=== PATIENT | male | born 1970 | race Caucasian/White ===

== ENCOUNTER 2021-02-08 10:45 | Emergency (ER) | payer OTHER, SELFPAY ==
--- NOTE | ~2021-02-08 | CT_ITS ---
EXAMINATION: CT abdomen pelvis w con DATE: 02/08/2021 12:50 INDICATION: Epigastric pain. TECHNIQUE: Computed tomography (CT) of the abdomen and pelvis was performed without intravenous contr ast. The dose-length product was 1564.10 mGy-cm. Automated exposure control and iterative reconstruct ion technique were employed. COMPARISON: None. FINDINGS: Heart size is normal. Small pleural effusions. Bibasilar dependent atelectasis. There is a mesenteric nodule measuring 1.6 x 0.7 cm, image 90. There is abnormal mesenteric fluid and stranding extending caudally from the level of the duodenum into the retroperitoneum. There is fluid extending into the paracolic gutters. Colonic diverticulosis without definitive evidence for acute diverticulit is. No evidence for bowel obstruction. There is mild thickening of the duodenum Fatty infiltration of the liver. The spleen, pancreas, adrenal glands and kidneys are unremarkable. N ormal appendix. Mild lumbar spondylosis. No hydronephrosis. Bladder is decompressed. IMPRESSION: 1. Mild fluid and stranding in the retroperitoneum and mesentery, possibly secondary to duodenitis. N o evidence for perforation or abscess. 2: Small mesenteric soft tissue nodule measuring up to 1.6 cm, possibly a lymph node. There are none nlarged retrocrural lymph nodes, nonspecific. 3: Small pleural effusions. 4: Colonic diverticulosis without evidence for diverticulitis. Reviewed, dictated and finalized at location A. IMPRESSION: 1. Mild fluid and stranding in the retroperitoneum and mesentery, possibly seco ndary to duodenitis. No evidence for perforation or abscess. 2: Small mesenteric soft tissue nodule measuring up to 1.6 cm, possibly a lymp h node. There are nonenlarged retrocrural lymph nodes, nonspecific. 3: Small pleural effusions. 4: Colonic diverticulosis without evidence for diverticulitis.
[2021-02-08 10:48] VITALS: BP 141/97; PULSE 94; RESP 18; TEMP 36.4; O2SAT 99
[2021-02-08 11:04] LABS: Basophils Absolute Auto 0.1 K/mm3 (0.0-0.1); Basophils Percent Auto 0.6 % (0.2-1.2); Eosinophils Absolute Auto 0.2 K/mm3 (0-0.3); Eosinophils Percent Auto 1.4 % (0-4.4); Hematocrit 52.6 % (42.0-52.0); Hemoglobin 17.1 g/dL (14.0-18.0); Immature Granulocyte Absolute 0.09 K/mm3 (0.00-0.031); Immature Granulocyte Percent A 0.8 % (0-0.5); Lymphocytes Percent Auto 11.3 % (18.3-44.2); Mean Corpuscular HGB Conc 32.5 g/dl (32-36); Mean Corpuscular Hemoglobin 28.5 pg (26-34); Mean Corpuscular Volume 87.5 fl (80-100); Mean Platelet Volume 9.6 fl (7.4-10.4); Monocytes Absolute Auto 0.9 K/mm3 (0.1-0.6); Monocytes Percent Auto 7.8 % (2.6-8.5); Neutrophils Percent Auto 78.1 % (45.5-73.1); Platelet Count Result 319 k/mm3 (150-375); Red Blood Count 6.01 M/mm3 (4.6-6.20); Red Cell Distribution Width 14.6 % (11.5-14.5); White Blood Count 11.5 K/mm3 (4.5-10.0)
[2021-02-08 11:14] LABS: Alanine Aminotransferase 39 U/L (4-50); Albumin Level 4.5 g/dL (3.5-5.1); Alkaline Phosphatase 93 U/L (38-126); Anion Gap 10 mmol/L (8-16); Aspartate Amino Transferase 24 U/L (17-59); Bilirubin,Total 0.5 mg/dL (0.2-1.3); Blood Urea Nitrogen 21 mg/dL (9-20); Calcium 9.8 mg/dL (8.4-10.2); Carbon Dioxide 27 mmol/L (22-30); Chloride 103 mmol/L (98-107); Estimated CRCL calculation 70 ml/min; Estimated Glomerular Filt Rate > 60; Glucose 119 mg/dL (75-110); Lipase 29 U/L (23-300); Potassium 4.5 mmol/L (3.4-5.0); Sodium 140 mmol/L (137-145)
[2021-02-08 11:22] LABS: Add Urine Microscopic? YES; Appearance Urine Clear (Clear); Bilirubin Urine Negative (Negative); Blood Urine Negative (Negative); Color Urine Amber (Yellow); Glucose Urine UA Negative (Negative); Hyaline Casts Urine 15-19 /lpf; Ketones Urine Negative (Negative); Leukocyte Esterase Ur Trace LEU/UL (Negative); Mucus Urine Moderate /lpf; Nitrate Urine Negative (Negative); Protein Urine 1+ mg/dL (Negative); RBC Urine 0-2 /hpf (0-2); Specific Grav Ur 1.026 (1.001-1.035); Squamous Epithelial Cell Urine Rare /hpf (Few); Urobilinogen Urine Negative mg/dL (<2.0)
--- NOTE | 2021-02-08 11:54 | ED.ABDPAIN ---
HPI - Abdominal Pain General Chief Complaint: Abdominal Pain Stated Complaint: sent from urgent care/abdominal pain Time Seen by Provider: 02/08/21 11:47 Source: patient and RN notes reviewed Mode of arrival: ambulatory Limitations: no limitations History of Present Illness HPI narrative: This is a 50 year old male with history of diverticulitis who presents for evaluation of upper abdominal pain. He states his pain has been constant and nonradiating. His pain is worse with sitting still. He also has nausea and dry heaves. He told triage nurse that his pain is different from previous episodes of diverticulitis because that pain is usually located left lower abdominal pain. He states he had a bowel movement today but it was less than normal. He took Motrin yesterday for his pain with out relief. He denies fever, chills, chest pain or sob. Pain is 8/10. Related Data Allergies Allergy/AdvReac Type Severity Reaction Status Date / Time No Known Allergies Allergy Verified 02/08/21 10:56 Review of Systems Review of Systems: All systems reviewed & are unremarkable except as noted in HPI and below PMFSH Past Medical History Medical History (Updated 02/08/21 @ 13:25 by Shayla Landeros MD) Diverticulitis Testicular cancer Surgical History Surgical History (Updated 02/08/21 @ 12:02 by Shayla Landeros MD) S/P orchiectomy Social History Social History (Updated 02/08/21 @ 12:03 by Shayla Landeros MD) Smoking status: Never smoker Alcohol intake: current Alcohol use details: social Substance use: never Exam Const: General: no acute distress and alert Orientation/consciousness: patient oriented x3 Eyes: EOM: EOMs intact bilaterally Resp: Effort & Inspection: normal respiratory effort and no retractions Auscultation: clear to auscultation bilaterally Cardio: Rate: regular rate Rhythm: regular rhythm Heart sounds: no murmurs GI: GI Palp: Yes Soft to palpation, Yes Tenderness to palpation present (GI) (epigastric), No Guarding due to palpation present (GI) and No Rigid due to palpation Auscultation: normal bowel sounds Skin: General skin exam: normal color Rashes: no rashes Neuro: General: patient oriented x3, moves all extremities and CN's II-XI intact bilaterally Extrem: General: normal to inspection Course Reevaluation(s) Reevaluation #1: I reviewed with patient his results of his CT scan showing inflammation at duodenum and lymph node. It was recommended that he follow up with GI/primary care provider to make sure this is fully evaluated and treated . He will be started on PPI Date: 02/08/21 Time: 13:21 Vital Signs Vital signs: Vital Signs Temperature 97.6 F 02/08/21 10:48 Pulse Rate 94 02/08/21 10:48 Respiratory Rate 18 02/08/21 10:48 Blood Pressure 141/97 H 02/08/21 10:48 Pulse Oximetry 99 02/08/21 10:48 Temperature 97.6 F 02/08/21 10:48 Pulse Rate 81 02/08/21 13:50 Respiratory Rate 18 02/08/21 13:50 Blood Pressure 116/80 02/08/21 13:50 Pulse Oximetry 96 02/08/21 13:50 MDM - Abdominal Pain Lab Data Attestation: I reviewed the patient's lab results. Result diagrams: 02/08/21 10:57 02/08/21 10:57 Labs: Lab Results 02/08/21 02/08/21 02/08/21 Range/Units 10:57 10:57 11:11 WBC 11.5 H (4.5-10.0) K/mm3 RBC 6.01 (4.6-6.20) M/mm3 Hgb 17.1 (14.0-18.0) g/dL Hct 52.6 H (42.0-52.0) % MCV 87.5 (80-100) fl MCH 28.5 (26-34) pg MCHC 32.5 (32-36) g/dl RDW 14.6 H (11.5-14.5) % Plt Count 319 (150-375) k/mm3 MPV 9.6 (7.4-10.4) fl Immature Gran % (Auto) 0.8 H (0-0.5) % Neut % (Auto) 78.1 H (45.5-73.1) % Lymph % (Auto) 11.3 L (18.3-44.2) % Wilkin % (Auto) 7.8 (2.6-8.5) % Eos % (Auto) 1.4 (0-4.4) % Baso % (Auto) 0.6 (0.2-1.2) % Lymph # (Auto) 1.30 (0.9-3.2) K/mm3 Wilkin # (Auto) 0.9 H (0.1-0.6) K/mm3 Eos # (Auto) 0.2 (0-0.3
[2021-02-08 12:18] VITALS: BP 140/94; PULSE 82; RESP 12; O2SAT 95
[2021-02-08] MEDS: LACTATED RINGERS 1,000 ML 999 ML IV CONT (12:26)
[2021-02-08] MEDS: ONDANSETRON INJ 4 MG/2 ML VIAL IV PUSH (12:27)
[2021-02-08] MEDS: PANTOPRAZOLE SODIUM IV 40 MG VIAL IV PUSH (12:27)
[2021-02-08 13:00] VITALS: BP 136/74; PULSE 87; RESP 16; O2SAT 94
[2021-02-08 13:11] VITALS: BP 136/74; PULSE 85; RESP 18; O2SAT 93
[2021-02-08 13:32] VITALS: BP 116/80; PULSE 81; RESP 18; O2SAT 95
[2021-02-08 13:50] VITALS: BP 116/80; PULSE 81; RESP 18; O2SAT 96
== END 2021-02-08 13:45 | disposition home or self-care (01) ==
PROVIDERS: Emergency Provider General Practice; PCP Family Medicine
DX: K29.80 Duodenitis without bleeding (principal); Z85.47 Personal history of malignant neoplasm of testis; K57.90 Diverticulosis of intestine, part unspecified, without perforation or abscess without bleeding; R93.5 Abnormal findings on diagnostic imaging of other abdominal regions, including retroperitoneum
CPT/HCPCS: 36415; 74177; 80053; 81001; 83690; 85025; 96361; 96365; 96375; 99284; C9113; J0131; J2405; J7120; Q9967

== ENCOUNTER → 2021-03-31 05:27 | Outpatient (CLI) | payer OTHER, SELFPAY ==
[2021-03-31 21:10] LABS: SARS-CoV-2 RNA PCR Negative
== END ==
PROVIDERS: PCP Family Medicine; Visit Provider Internal Medicine Gastroenterology
DX: Z01.812 Encounter for preprocedural laboratory examination (principal); Z20.822 Contact with and (suspected) exposure to COVID-19
CPT/HCPCS: C9803; U0003; U0005

== ENCOUNTER 2021-04-03 05:27 | Day surgery (SDC) | payer OTHER, SELFPAY ==
[2021-03-25 13:25] VITALS: BMI 39.5
--- NOTE | 2021-04-03 09:21 | P.PNAN_ITS ---
Anes - Initial Pre Proc Eval Procedure: Operation Date: 04/03/21 12:00 Proposed Procedures p Esophagogastroduodenoscopy & Screening Colonoscopy - Fili Her MD Date/Time: 04/03/21 09:21 Surgeon: Fili Her MD Pre Op Diagnosis: duodenitis, neoplasm screening Patient Data Age: 50 Gender: M Height: 1.78 m Weight: 125 kg Allergies Allergy/AdvReac Type Severity Reaction Status Date / Time No Known Allergies Allergy Verified 02/12/20 16:05 Home Medications Medication Instructions Recorded Confirmed Type pantoprazole 40 mg PO DAILY 03/25/21 03/25/21 History Patient hx anesthesia problems: none Family hx anesthesia problems: none [facility] Past Medical History Medical History (Updated 02/12/20 @ 16:47 by Belinda Cardenas MD) Allergies Diverticulitis (~02/2002) Environmental allergies (~06/27/17) Forearm fracture YAMILA (obstructive sleep apnea) (~06/28/18) Testicular cancer UGI bleed (~11/1998) Surgical History Surgical History History of orchiectomy History of vasectomy (~07/2012) Social History Social History Smoking status: Never smoker Second hand tobacco smoke exposure: No Alcohol intake: current Drinks per week: 2 Alcohol use details: consumes 2 beers or 2 glasses of wine weekly Substance use: never Substance use type: does not use Living arrangements: with family Gender identity (if verbalized by the patient): Male Spiritual care concerns: No Anes - Eval Final PreProcedure Day of Procedure 04/03/21 09:21 Patient weight: obese Heart: regular rate and rhythm Lungs: clear to auscultation and normal air movement Airway: Mallampati scale class II Neurological: alert and oriented Last oral intake: >/= 8 hours ASA classification: III Emergent: no Anesthetic plan: proceed Anesthesia type and monitoring: general GIVS Informed Consent: The patient's anesthetic plan and its attendant risks and benefits were discussed with the patient/family/POA. Questions were solicited and answers provided to the satisfaction of the patient/family/POA.
[2021-04-03 11:38] VITALS: BP 137/74; PULSE 66; RESP 16; TEMP 35.9; O2SAT 97; BMI 37.3
[2021-04-03] MEDS: LACTATED RINGERS 1,000 ML 150 ML IV CONT (11:53)
--- NOTE | 2021-04-03 12:14 | P.HP_ITS ---
History of Present Illness History of Present Illness Consent: Risks, benefits, and alternatives have been discussed and questions answered. Patient agrees to proceed with procedure. Chief complaint: duodenitis, neoplasm screening Narrative: Juwan Wade Jr. is a 50 year old male who has recently had upper abdominal discomfort. He also has had chest pain for which she had a visit to [place] emergency room recently. Cardiac tests were negative. He was found to have duodenitis on CT scan. He has lost about 20 lb since this all began Review of Systems Review of Systems: All systems reviewed & are unremarkable except as noted in HPI and below PMFSH Past Medical History Medical History (Updated 04/03/21 @ 12:15 by Fili Her MD) Allergies Diverticulitis (~02/2002) Environmental allergies (~06/27/17) Forearm fracture YAMILA (obstructive sleep apnea) (~06/28/18) Testicular cancer UGI bleed (~11/1998) Surgical History Surgical History History of orchiectomy History of vasectomy (~07/2012) Social History Social History Smoking status: Never smoker Second hand tobacco smoke exposure: No Alcohol intake: current Drinks per week: 2 Alcohol use details: consumes 2 beers or 2 glasses of wine weekly Substance use: never Substance use type: does not use Living arrangements: with family Gender identity (if verbalized by the patient): Male Spiritual care concerns: No Meds Home Medications and Allergies Home Medications Medication Instructions Recorded Confirmed Type pantoprazole 40 mg PO DAILY 03/25/21 04/03/21 History Allergies Allergy/AdvReac Type Severity Reaction Status Date / Time No Known Allergies Allergy Verified 04/03/21 11:36 Vital Signs Vital Signs - 24 hr 04/03/21 11:38 Temperature 35.9 C L Pulse Rate 66 Respiratory Rate 16 Blood Pressure 137/74 Pulse Oximetry 97 Exam Const: General: alert Orientation/consciousness: patient oriented x3 Resp: Auscultation: clear to auscultation bilaterally Cardio: Rhythm: regular rhythm GI: GI Palp: Yes Soft to palpation and No Tenderness to palpation present (GI) Neuro: General: patient oriented x3 Assessment and Plan Assessment and plan (1) Abnormal CT scan, gastrointestinal tract: Code(s): R93.3 - Abnormal findings on diagnostic imaging of other parts of digestive tract Status: Acute Assessment and Plan: EGD with possible biopsy or dilatation or cautery. (2) Colon cancer screening: Code(s): Z12.11 - Encounter for screening for malignant neoplasm of colon Status: Acute Assessment and Plan: Colonoscopy with possible biopsy or polypectomy or cautery or injection of substances.
[2021-04-03] MEDS: BENZOCAINE (*SP) 60 ML SPRAY CAN (HURRICAINE) 1 SPRAY MUCOUS MEM (12:24)
[2021-04-03 12:49] VITALS: BP 84/51; PULSE 64; RESP 18; O2SAT 97
[2021-04-03 12:59] VITALS: BP 87/59; PULSE 57; RESP 18; O2SAT 98
[2021-04-03 13:09] VITALS: BP 102/62; PULSE 52; RESP 13; O2SAT 98
== END 2021-04-03 13:16 | disposition home or self-care (01) ==
PROVIDERS: PCP Family Medicine; Visit Provider Internal Medicine Gastroenterology
PROC: 0DJ08ZZ Inspection of Upper Intestinal Tract, Via Natural or Artificial Opening Endoscopic (ICD-10-PCS; CPT 43235; principal; 2021-04-03 12:00)
DX: Z12.11 Encounter for screening for malignant neoplasm of colon (principal); K29.80 Duodenitis without bleeding; K21.9 Gastro-esophageal reflux disease without esophagitis; K57.30 Diverticulosis of large intestine without perforation or abscess without bleeding; G47.33 Obstructive sleep apnea (adult) (pediatric); Z85.47 Personal history of malignant neoplasm of testis
CPT/HCPCS: 45378; 43239; 87081; 88305; C9803; J2704; J7120; U0003; U0005

== ENCOUNTER 2022-11-08 09:41 | Outpatient (CLI) | payer OTHER, SELFPAY ==
[2022-11-08 19:13] LABS: Alanine Aminotransferase 51 U/L (6-50); Albumin Level 4.5 g/dL (3.5-5.1); Alkaline Phosphatase 96 U/L (38-126); Anion Gap 10 mmol/L (8-16); Aspartate Amino Transferase 30 U/L (17-59); Bilirubin,Total 0.5 mg/dL (0.2-1.3); Blood Urea Nitrogen 17 mg/dL (9-20); Calcium 9.2 mg/dL (8.4-10.2); Carbon Dioxide 26 mmol/L (22-30); Chloride 104 mmol/L (98-107); Cholesterol 205 mg/dL (0-200); Estimated Glomerular Filt Rate > 60; Glucose 105 mg/dL (65-110); HDL Direct 30 mg/dL; Potassium 4.7 mmol/L (3.4-5.0); Sodium 140 mmol/L (137-145); Triglycerides 198 mg/dL (<150); Uric Acid 9.7 mg/dL (3.5-8.5)
[2022-11-08 19:24] LABS: LDL Cholesterol Direct 130 mg/dL
[2022-11-08 19:42] LABS: Prostate Specific Antigen 1.1 ng/mL (< OR = 4.0)
[2022-11-08 21:04] LABS: Basophils Absolute Auto 0.1 K/mm3 (0.0-0.1); Basophils Percent Auto 0.8 % (0.2-1.2); Eosinophils Absolute Auto 0.1 K/mm3 (0-0.3); Eosinophils Percent Auto 1.3 % (0-4.4); Hematocrit 47.6 % (42.0-52.0); Hemoglobin 15.8 g/dL (14.0-18.0); Immature Granulocyte Absolute 0.05 K/mm3 (0.00-0.031); Immature Granulocyte Percent A 0.7 % (0-0.5); Lymphocytes Absolute Auto 1.52 K/mm3 (0.9-3.2); Lymphocytes Percent Auto 21.3 % (18.3-44.2); Mean Corpuscular HGB Conc 33.2 g/dl (32-36); Mean Corpuscular Hemoglobin 29.7 pg (26-34); Mean Corpuscular Volume 89.5 fl (80-100); Mean Platelet Volume 10.3 fl (7.4-10.4); Monocytes Absolute Auto 0.6 K/mm3 (0.1-0.6); Neutrophils Absolute Auto 4.8 K/mm3 (1.3-6.7); Neutrophils Percent Auto 66.9 % (45.5-73.1); Platelet Count Result 308 k/mm3 (150-375); Red Blood Count 5.32 M/mm3 (4.6-6.20); Red Cell Distribution Width 14.3 % (11.5-14.5); White Blood Count 7.1 K/mm3 (4.5-10.0)
== END 2022-11-08 09:42 | disposition home or self-care (01) ==
LOC: ANHGOSHLAB 09:42
PROVIDERS: PCP Family Medicine; Visit Provider Nurse Practitioner
DX: M79.89 Other specified soft tissue disorders (principal); Z13.6 Encounter for screening for cardiovascular disorders; Z13.220 Encounter for screening for lipoid disorders; Z12.5 Encounter for screening for malignant neoplasm of prostate
CPT/HCPCS: 36415; 80053; 80061; 84153; 84550; 85025; G0103

== ENCOUNTER → 2022-11-12 10:05 | Outpatient (CLI) | payer OTHER, SELFPAY ==
--- NOTE | ~2022-11-12 | US_ITS ---
US soft tissue upper back DATE: 11/12/2022 10:19 INDICATION: Localized lump of mid upper right back TECHNIQUE: Real-time and color flow imaging targeted area of complaint of lump of the right back COMPARISON: None FINDINGS: There is an approximately 3.3 x 13.6 x 14.5 cm circumscribed soft tissue mass with minimal internal vascularity in the area of clinical complaint. IMPRESSION: Nonspecific 3.3 x 13.6 x 14.5 cm soft tissue mass of the mid upper right back Reviewed, dictated and finalized at Location [facility]. Reviewed, dictated and finalized at location B.
== END ==
PROVIDERS: PCP Family Medicine; Visit Provider Nurse Practitioner
DX: R22.2 Localized swelling, mass and lump, trunk (principal)
CPT/HCPCS: 76604

== ENCOUNTER 2023-10-21 08:24 | Outpatient (CLI) | payer OTHER, SELFPAY ==
[2023-10-21 12:44] LABS: Basophils Absolute Auto 0.1 K/mm3 (0.0-0.1); Basophils Percent Auto 0.8 % (0.2-1.2); Eosinophils Absolute Auto 0.3 K/mm3 (0-0.3); Eosinophils Percent Auto 3.3 % (0-4.4); Hematocrit 49.1 % (42.0-52.0); Hemoglobin 15.7 g/dL (14.0-18.0); Immature Granulocyte Percent A 1.1 % (0-0.5); Lymphocytes Absolute Auto 1.34 K/mm3 (0.9-3.2); Lymphocytes Percent Auto 14.6 % (18.3-44.2); Mean Corpuscular Hemoglobin 28.6 pg (26-34); Mean Corpuscular Volume 89.6 fl (80-100); Mean Platelet Volume 10.3 fl (7.4-10.4); Monocytes Absolute Auto 0.8 K/mm3 (0.1-0.6); Monocytes Percent Auto 8.9 % (2.6-8.5); Neutrophils Absolute Auto 6.5 K/mm3 (1.3-6.7); Neutrophils Percent Auto 71.3 % (45.5-73.1); Platelet Count Result 286 k/mm3 (150-375); Red Blood Count 5.48 M/mm3 (4.6-6.20); Red Cell Distribution Width 14.3 % (11.5-14.5); White Blood Count 9.2 K/mm3 (4.5-10.0)
[2023-10-21 13:02] LABS: Alanine Aminotransferase 34 U/L (6-50); Alkaline Phosphatase 85 U/L (38-126); Anion Gap 4 mmol/L (8-16); Aspartate Amino Transferase 60 U/L (17-59); Bilirubin,Total 0.6 mg/dL (0.2-1.3); Blood Urea Nitrogen 18 mg/dL (9-20); Calcium 8.8 mg/dL (8.4-10.2); Carbon Dioxide 28 mmol/L (22-30); Chloride 107 mmol/L (98-107); Cholesterol 172 mg/dL (0-200); Estimated Glomerular Filt Rate > 60; Glucose 108 mg/dL (65-110); HDL Direct 33 mg/dL; Potassium 4.4 mmol/L (3.4-5.0); Sodium 139 mmol/L (137-145); Triglycerides 126 mg/dL (<150)
[2023-10-21 13:13] LABS: LDL Cholesterol Direct 118 mg/dL
[2023-10-21 14:01] LABS: Hemoglobin A1C 5.9 % (<5.7)
== END 2023-10-21 08:25 | disposition home or self-care (01) ==
LOC: ANHGOSHLAB 08:25
PROVIDERS: PCP Family Medicine; Visit Provider Nurse Practitioner Family
DX: Z00.00 Encounter for general adult medical examination without abnormal findings (principal); I10 Essential (primary) hypertension; Z12.5 Encounter for screening for malignant neoplasm of prostate; R73.03 Prediabetes; E03.9 Hypothyroidism, unspecified; E78.5 Hyperlipidemia, unspecified
CPT/HCPCS: 36415; 80053; 80061; 83036; 84153; 84443; 85025; G0103

== ENCOUNTER 2023-10-21 08:52 | Outpatient (CLI) | payer OTHER, SELFPAY ==
--- NOTE | ~2023-10-21 | XR_ITS ---
EXAMINATION:XR_[id number]_CR DATE: 10/21/2023 09:04 INDICATION: Neck pain TECHNIQUE: AP, lateral, lateral swimmers and odontoid views of the cervical spine are provided. COMPARISON: None FINDINGS: There is straightening of the cervical spine which can be positional or due to muscular spa sm. Alignment is normal. There are 5 degrees of cervical levocurvature. The odontoid process is intac t. No fracture is identified. Vertebral body heights and disk spaces are normal. Prevertebral soft ti ssues are normal. IMPRESSION: 1. Mild levocurvature of the cervical spine without acute findings identified. Reviewed, dictated and finalized at location B. SERVICE CLERK
== END 2023-10-21 08:53 ==
LOC: MICIMG 08:54
PROVIDERS: PCP Nurse Practitioner Family; Visit Provider Nurse Practitioner Family
DX: M62.838 Other muscle spasm (principal); S19.9XXA Unspecified injury of neck, initial encounter; X58.XXXA Exposure to other specified factors, initial encounter
CPT/HCPCS: 72040

== ENCOUNTER 2023-12-02 01:06 | Day surgery (SDC) | payer OTHER, SELFPAY ==
[2023-11-23 10:25] VITALS: BMI 40.1
--- NOTE | 2023-11-23 10:29 | PC.NURSE ---
Report to the Outpatient Waiting Room, entrance under the green pavilion located off [facility], at time 1200 on date 12/02/23. Planned Procedure Time: 1400. Time changes happen often and if your time is changed the preop area will call you the afternoon before. - You and your visitor will be asked to self-screen and do not enter if you have any COVID symptoms. - A mask is optional within the hospital at this time. Patients may have clear liquids (water, carbonated beverages, clear teas, apple juice) until 3 hours prior to surgery with a maximum of 20 ounces. - No food from midnight until time of surgery Take the following medications with a SIP of water the morning of surgery: N/A DO NOT STOP ANY OF YOUR OTHER PRESCRIPTION MEDICATIONS PRIOR TO SURGERY ?EXCEPT THE FOLLOWING Medications to discontinue per physician: N/A Date to take last dose: N/A Please no make-up, nail kazakh, hairspray, perfume, deodorant, or body powder the day of surgery. No jewelry (including any body piercings) or valuables the day of surgery, leave them at home. Please take a shower or bath the night before, or the morning of, surgery with an antibacterial soap. Wear comfortable, loose fitting clothing. - Jewelry must be removed prior to entering the operating room. Rings and piercings that are not removed may be cut off. - The hospital will not accept responsibility for valuables. - Please leave all valuables, including medications, at home the day of surgery. If you are going home after surgery, a licensed production truck driver must drive you home. - NO public transportation without another adult if you receive anesthesia. - We recommend that an adult stay with you for 24 hours following discharge. - We also recommend that you do not drive, make important decision, drink alcoholic beverages, or take any drugs that were not prescribed by your health care provider for at least 24 hours after your discharge time. Follow any additional instructions given to you from your surgeon. If you or anyone in your household have experienced Covid symptoms in the past week, please notify your surgeon or the nurse liaison at the phone number below for possible testing. Telephone instructions given to PT - DAPHNEY and asked if any additional questions and then verbalized understanding. Patient advised to call surgeon office or pre surgery nurse liaison [phone] if any additional questions.
[2023-12-02] VITALS (8 sets, daily range): BP systolic 124–159; BP diastolic 66–90; PULSE 65–75; RESP 16–20; TEMP 36.3–36.7; O2SAT 96–98
--- NOTE | 2023-12-02 12:07 | WPDANESEPPF ---
Anes - Initial Pre Proc Eval Procedure: Operation Date: 12/02/23 13:30 Proposed Procedures p Excision of Upper Back Mass - Nathanael Bautista DO Date/Time: 12/02/23 12:07 Surgeon: Nathanael Bautista DO Pre Op Diagnosis: 14 cm upper back mass Patient Data Age: 53 Gender: M Height: 1.78 m Weight: 127 kg Allergies Allergy/AdvReac Type Severity Reaction Status Date / Time No Known Allergies Allergy Verified 12/02/23 11:57 Home Medications Medication Instructions Recorded Confirmed Type No Home Medications 11/23/23 11/23/23 History Patient hx anesthesia problems: none Family hx anesthesia problems: none Results Review: All pre-operative results and documents have been reviewed as part of the pre-operative evaluation. [facility]LY [facility] Past Medical History Medical History Allergies Diverticulitis Environmental allergies (~06/27/17) Forearm fracture Muscle spasm YAMILA (obstructive sleep apnea) (~06/28/18) Testicular cancer UGI bleed (~11/1998) Surgical History Surgical History History of orchiectomy History of vasectomy (~07/2012) Family History Family History Father Family history of gout Family history of coronary artery disease Mother Family history of ulcerative colitis Grandparent Family history of chronic obstructive pulmonary disease Family history of lung cancer Family history of coronary artery disease Family history of malignant neoplasm of urinary bladder Other Diabetes mellitus Hypertension Social History Social History Smoking status: Never smoker Second hand tobacco smoke exposure: No Alcohol intake: current Drinks per week: 3 Alcohol use details: social Substance use: never Substance use type: does not use Lack of Transportation: No Lack of Food: Never True Current Housing: I Have Housing Concerned About Future Housing: No Difficulty Paying Gas/Electric Bills: No Difficulty Paying for Meds: No Currently Unemployed: No Education: Bachelor's Degree Difficulty w/ Childcare or Family Care: No Living arrangements: with family Gender identity (if verbalized by the patient): Male Spiritual care concerns: No Anes - Eval Final PreProcedure Day of Procedure 12/02/23 12:07 Patient weight: morbidly obese Heart: regular rate and rhythm Lungs: clear to auscultation Airway: Mallampati scale class II Neurological: alert and oriented Last oral intake: >/= 8 hours ASA classification: III Emergent: no Anesthetic plan: proceed Anesthesia type and monitoring: general LMA and standard monitoring Results Review: All pre-operative results and documents have been reviewed as part of the pre-operative evaluation. Informed Consent: The patient's anesthetic plan and its attendant risks and benefits were discussed with the patient/family/POA. Questions were solicited and answers provided to the satisfaction of the patient/family/POA.
[2023-12-02] MEDS: LACTATED RINGERS 1,000 ML 30 ML IV CONT (12:30)
--- NOTE | 2023-12-02 12:44 | PM.IMHP ---
H&P: HPI History of Present Illness Date/Time: 12/02/23 12:44 Chief Complaint: Back mass Narrative: This is a 53-year-old man who presents for excision of a large back mass. He reports no changes since last seen in the office. Review of Systems Review of Systems: All systems reviewed & are unremarkable except as noted in HPI and below Constitutional: Constitutional: Denies chills, Denies fever(s), Denies headache(s) and Denies weight loss Eyes: Eyes: Denies change in vision ENT: Denies dizziness, Denies headache(s), Denies neck mass and Denies throat swelling Cardiovascular: Cardiovascular: Denies chest pain, Denies lightheadedness and Denies dyspnea Respiratory: Respiratory: Denies cough, Denies dyspnea and Denies wheezing Gastrointestinal: Gastrointestinal: Denies abdominal pain, Denies change in bowel habits, Denies nausea and Denies vomiting Genitourinary: Genitourinary: Denies hematuria and Denies dysuria Musculoskeletal: Musculoskeletal: Reports as per HPI Integumentary/Breasts: Skin/Breast: Reports as per HPI Neurologic: Denies dizziness and Denies headache(s) Allergic/Immunologic: Allergic/Immunologic: Denies throat swelling and Denies wheezing PMFSH Past Medical History Medical History Allergies Diverticulitis Environmental allergies (~06/27/17) Forearm fracture Muscle spasm YAMILA (obstructive sleep apnea) (~06/28/18) Testicular cancer UGI bleed (~11/1998) Surgical History Surgical History History of orchiectomy History of vasectomy (~07/2012) Family History Family History Father Family history of gout Family history of coronary artery disease Mother Family history of ulcerative colitis Grandparent Family history of chronic obstructive pulmonary disease Family history of lung cancer Family history of coronary artery disease Family history of malignant neoplasm of urinary bladder Other Diabetes mellitus Hypertension Social History Social History Smoking status: Never smoker Second hand tobacco smoke exposure: No Alcohol intake: current Drinks per week: 3 Alcohol use details: social Substance use: never Substance use type: does not use Lack of Transportation: No Lack of Food: Never True Current Housing: I Have Housing Concerned About Future Housing: No Difficulty Paying Gas/Electric Bills: No Difficulty Paying for Meds: No Currently Unemployed: No Education: Bachelor's Degree Difficulty w/ Childcare or Family Care: No Living arrangements: with family Gender identity (if verbalized by the patient): Male Spiritual care concerns: No Meds Home Medications and Allergies Home Medications Medication Instructions Recorded Confirmed Type No Home Medications 11/23/23 11/23/23 History Allergies Allergy/AdvReac Type Severity Reaction Status Date / Time No Known Allergies Allergy Verified 12/02/23 11:57 Vital Signs Vital Signs - 24 hr 12/02/23 12:30 Temperature 36.3 C L Pulse Rate 65 Respiratory Rate 16 Blood Pressure 146/83 H Pulse Oximetry 98 Oxygen Delivery Room Air Exam Const: General: no acute distress and alert Orientation/consciousness: patient oriented x3 HENMT: Head: normocephalic and atraumatic Ears: hearing grossly normal bilaterally Face/Nose/Sinus: Normal nares present Mouth: Yes Normal oral and palatal mucosa present Eyes: Periorbital: periorbital findings normal Sclera: sclerae normal EOM: EOMs intact bilaterally Neck: Neck: normal visual inspection, no lymphadenopathy and trachea midline Chest: Chest palpation & inspection: normal inspection of the chest Resp: Effort & Inspection: normal respiratory effort Auscultation: clear to auscultation bilaterally Cardio: Jugular venous distension: no JVD Rate: regular rate Rhythm: regular rhythm Heart sounds: S1 normal heart sound present and S2 normal heart sound present Peripheral pulses: Peripheral pulses 2+ throughout GI: Inspection: normal to inspection GI Palp: Yes Soft to palpation, No Tenderness to palpation present (GI), No Guarding due to palpation present (GI) and No Rebound tenderness present Percussion: Yes normal to percussion Auscultation: normal bowel sounds : General: Yes no CVA tenderness Back/Spine/Pelvis: Back: no CVA tenderness Other: 14 cm right mid back mass, soft mobile, likely a lipoma Neuro: General: patient oriented x3, no focal motor deficits and CN's II-XI intact bilaterally Cognition (Neuro): normal cognition Speech: normal speech Motor exam (neuro): 5/5 motor strength present throughout Extrem: General: capillary refill normal and no clubbing, cyanosis or edema Assessment and Plan Assessment and plan (1) Subcutaneous mass of back: Code(s): R22.2 - Localized swelling, mass and lump, trunk Status: Acute Assessment and Plan: I have recommended excision of 14 cm back mass. I have discussed the procedure, risks, benefits, and alternatives with the patient. All questions answered. No changes since last seen in office.
--- NOTE | 2023-12-02 12:46 | WPDHPUPDATE1 ---
History and Physical Update Update Date/Time: 12/02/23 12:46 History and Physical has been reviewed, including an updated exam of the patient. There are NO changes in the patient's condition. Risks, benefits, and alternatives have been discussed and questions answered. Patient agrees to proceed with procedure.
[2023-12-02] MEDS: ceFAZolin 3 GM/D5W 100 ML 100 ML IVPB (13:05)
--- NOTE | 2023-12-02 14:20 | P.OP_ITS ---
Procedure Note - Detailed Date of Procedure 12/02/23 Pre-op Diagnosis 14 cm upper back mass Post-op Diagnosis Same Procedure Performed 1. Excision of 14 cm subcutaneous upper back mass 2. Layered closure Surgeon Nathanael Bautista, DO Anesthesia MAC and Local (1% lidocaine with epinephrine) Indications This is a 53-year-old man who presented with a large subcutaneous mass in his upper back just below the base of his neck. He did been present for years and has gradually increased in size. An ultrasound was performed which showed evidence of a subcutaneous mass consistent with a lipoma. Discussions made the patient about treatment options and decision was made to proceed with excision of a 14 cm upper back mass. Findings The upper back mass was completely excised. The mass appeared to be a very large subcutaneous lipoma. I had to dissect wide around this mass to get it out completely. There was a large empty space after the mass was completely excised. I chose to place a 15 round Suresh drain to prevent large seroma from forming. The mass was sent to the lab for pathology. Description of Procedure Procedure as well as risks, benefits, and alternatives were discussed with the patient. Written consent was obtained and placed in chart prior to procedure. Patient was brought back to surgical suite. He was placed in left lateral decubitus position on the operating table. Time-out was done to confirm patient and procedure. IV sedation and LMA was administered Anesthesia Department. The patient's back area was prepped and draped in sterile fashion using chlorhexidine prep. 1% lidocaine with epinephrine was infiltrated locally over the mass. A 14 cm transverse incision was then made directly over mass using a 10 blade scalpel. Electrocautery was used for hemostasis and for dissection through the subcutaneous tissue. The mass was identified and the subcutaneous attachments were carefully dissected free around it. After carefully dissecting circumferentially around the mass using electrocautery. I then gently dissected the mass off of the back muscle and fascia there was just deep to it using electrocautery. The mass was completely excised and sent to the lab for pathol ogy. The wound bed was then inspected. Hemostasis was achieved with electrocautery. I then irrigated the area with sterile saline. Hemostasis appeared adequate. Because of the wide space that the mass was taking up, I chose to place a 15 round Suresh drain through an incision just inferior to the skin incision. The drain was placed within the subcutaneous space and then secured to skin using a 3-0 nylon drain stitch. The João's fascia and deep dermis was then reapproximated using 2-0 Vicryl simple interrupted sutures. The skin was then approximated using 3-0 nylon vertical mattress interrupted sutures. Bacitracin was then applied followed by fluff gauze and Medipore tape. Estimated Blood Loss 20 Drains Yes (15 round Suresh) Pathology Yes (Subcutaneous back mass) Complications No immediate complications Condition Stable Disposition Same day [facility] Billing Surgery - Charge Forward: Surgery Billing
[2023-12-02] MEDS: oxyCODONE HCL (*CRX) 5 MG TAB IR PO (15:27)
== END 2023-12-02 15:58 | disposition home or self-care (01) ==
PROVIDERS: PCP Family Medicine; Visit Provider Surgery
PROC: (CPT 21931; principal; 2023-12-02 13:30)
DX: D17.1 Benign lipomatous neoplasm of skin and subcutaneous tissue of trunk (principal); E66.01 Morbid (severe) obesity due to excess calories; Z68.39 Body mass index [BMI] 39.0-39.9, adult
CPT/HCPCS: 21931; 88304; A9270; J0690; J1100; J2250; J2405; J2704; J3010; J7030; J7120

== ENCOUNTER 2024-11-09 09:56 | Outpatient (CLI) | payer OTHER, SELFPAY ==
--- OUTSIDE RECORDS SUMMARY | 2024-11-09 10:43 | XMS_ITS | Clinical Summary ---
Author Organization [facility] Address [address] [place] [address] Care Team Providers Care Welder Assembler Name Role Phone Margie Cardenas MD Primary Care Provider Allergies No known active allergies Medications No known medications Active Problems No known active problems Social History Tobacco Use Types Packs/Day Years Used Date Smoking Tobacco: Never Tobacco Cessation:Counseling Given: Not Answered Sex and Gender Information Value Date Recorded Sex Assigned at Not on file Legal Sex Male 2:26 PM VOCATIONAL REHABILITATION SUPERVISOR Gender Identity Not on file Sexual Orientation Not on file Obstetrics History Last Filed Vital Signs Vital Sign Reading Time Taken Comments Blood Pressure 136/70 10/20/2023 10:11 AM VOCATIONAL REHABILITATION SUPERVISOR Pulse 73 10/20/2023 10:11 AM VOCATIONAL REHABILITATION SUPERVISOR Temperature 36.6 C (97.9 F) 10/20/2023 10:11 AM VOCATIONAL REHABILITATION SUPERVISOR Respiratory Rate 18 10/20/2023 10:11 AM VOCATIONAL REHABILITATION SUPERVISOR Oxygen Saturation 95% 10/20/2023 10:11 AM VOCATIONAL REHABILITATION SUPERVISOR Inhaled Oxygen Concentration - - Weight 124.7 kg (275 lb) 10/20/2023 10:11 AM VOCATIONAL REHABILITATION SUPERVISOR Height 180.3 cm (5' 11 ) 10/20/2023 10:11 AM VOCATIONAL REHABILITATION SUPERVISOR Body Mass Index 38.35 10/20/2023 10:11 AM VOCATIONAL REHABILITATION SUPERVISOR Plan of Treatment Health Maintenance Due Date Last Done Comments Colon Cancer Screening-Colonoscopy 1970 Depression Screening 1970 Hepatitis C Screening 1970 Prostate Cancer Screening-PSA 1970 DTaP/Tdap/Td Vaccine (1 - Tdap) 1981 Hepatitis B Screening 1988 Regular Well Visit/Exam 18-64 1988 Zoster Vaccine (1 of 2) 2020 Influenza Vaccine (#1) 2024 Pneumococcal vaccine <65 Aged Out No longer eligible based on patient's age to complete this topic Insurance [employer] OPEN ACCESS [employer] OPEN ACCESS [employer] OPEN ACCESS Care Teams Welder Assembler Relationship Specialty Start Date End Date Margie Cardenas MD PCP - General 03/05/21
--- OUTSIDE RECORDS SUMMARY | 2024-11-09 10:43 | XMS_ITS | Encounter Summary ---
Author Organization [facility] Address [address] [facility] [place] [address] Care Team Providers Care Table Hand Name Role Phone Unavailable Primary Care Provider Unavailabl e Encounter Details Date Type Department Care Team (Late st Contact Info) Description 05/03/[address] [facility] Care DermPath Lab [address] [facility] [place] [address] Faye Edwards MD [address] [facility] [address] DEPT [place] [address] Social History Tobacco Use Types Packs/Day Years Used Date Smoking Tobacco: Never Assessed Sex and Gender Information Value Date Recorded Sex Assigned at Not on file Gender Identity Not on file Sexual Orientation Not on file documented as of this encounter Plan of Treatment Not on file documented as of this encounter Procedures Procedure Name Priority Date/Time Associated Diagnosis Comments DERMATOPATH TECHNICAL REPORT Routine 05/02/2018 12:00 AM CDT documented in this encounter Results * DERMATOPATH TECHNICAL REPORT (05/02/2018 12:00 AM CDT) Case Report Dermatopathology Report Case: [id number] Authorizing Provider: Faye Edwards MD Collected: 05/02/2018 12:00 AM Pathologist: Danielle Leiva MD Received: 05/03/2018 05:50 AM Specimens: A) - Skin, right lower leg B) - Skin, left lower leg 8 12:45 PM CDT DERMATOPATHOLOGY LABORATORY Clinical History A: Vasculitis vs other. B: Vasculitis vs other. Irritated. 8 12:45 PM CDT DERMATOPATHOLOGY LABORATORY Gross Description Specimen A: Received is one formalin filled container labeled with the patient's name and designated right lower leg. The specimen consists of a punch measuring [id number]. Jar 0. Specimen B: Received is one formalin filled container labeled with the patient's name and designated left lower leg. The specimen consists of a punch measuring [id number]. Jar 0. [facility] Dermatopathology Laboratory performed the technical component only. 12:45 PM CDT DERMATOPATHOLOGY LABORATORY Embedded Images 12:45 PM CDT DERMATOPATHOLOGY LABORATORY DISCLAIMER An external and internal positive and negative controls are appropriate for the histochemical, immunohistochemical and immunofluorescence stain(s) in this case (if any), except where stated explicitly. The performance characteristics of the stain(s) cited in this report were developed and its performance characteristic determined by the Dermatopathology Laboratory at [facility]. These tests need not be, and therefore are not, approved by the [place] Food and Drug Administration. The tests are used for clinical purposes. 12:45 PM T DERMATOPATHOLOGY LABORATORY Pathology/Cytology TISSUE SPECIMEN FROM SKIN / Unknown 05/02/2018 05/03/2018 5:50 AM CDT Miscellaneous samples (specimen) TISSUE SPECIMEN FROM SKIN / Unknown 05/02/2018 05/03/2018 5:50 AM CDT Faye Edwards MD LAB - PATHOLOGY/CYT OLOGY ORDERABLES DERMATOPATHOLOGY LABORATORY [facility] - Department of Dermatology [address] [place] [address] 5th Floor Lab B [address] [phone] documented in this encounter Visit Diagnoses Not on filedocumented in this encounter
--- OUTSIDE RECORDS SUMMARY | 2024-11-09 10:43 | XMS_ITS | Clinical Summary ---
Author Organization [facility] Address [address] [place] [address] Care Team Providers Care Site Operations Manager Name Role Phone Unavailable Primary Care Provider Unavailabl e Source Comments [facility],non-owned Affiliates and Associated Physician Practices is amultiple site organization consisting of ambulatory clinics and hospital sitesin [place], [place], [place] and [place]. This disclosure is being madepursuant to the Care Everywhere program and may not contain all informatio navailable regarding this patient. Last updated 18.[facility] [employer] Social History Tobacco Use Types Packs/Day Years Used Date Smoking Tobacco: Never Assessed Sex and Gender Information Value Date Recorded Sex Assigned at Not on file Gender Identity Not on file Sexual Orientation Not on file Plan of Treatment Health Maintenance Due Date Last Done Comments COLOGUARD (AGES 45-75) - COL ON CA SCREENING 1970 COLON MONITORING 1970 COLONOSCOPY - COLON CA SCREENING 1970 CT COLONOGRAPHY - COLON CA SCREENING 1970 Colorectal Cancer Screening 1970 FIT - COLON CA SCREENING 1970 FLEX SIG - COLON CA SCREENING 1970 LIPID TESTING 1970 HIV SCREENING 1985 HEPATITIS C SCREENING 05/03/1988 DTAP/TDAP/TD VACCINES (1 - Tdap) 1989 HEPATITIS B VACCINE (1 of 3 - 19+ 3-dose series) 1989 PNEUMOCOCCAL VACCINE 50+ (1 of 1 - PCV) 2020 ZOSTER VACCINE (1 of 2) 2020 COVID-19 VACCINE ( - 2023-2 5 season) 2024 INFLUENZA VACCINE (#1) 2024 DEPRESSION SCREENING 08/15/2024 HIB VACCINE Aged Out No longer eligi ble based on patient's age to complete this topic HPV VACCINE Aged Out No longer eligi ble based on patient's age to complete this topic MENINGOCOCCAL (Group B) VACC INE SHARED DECISION-MAKING Aged Out No longer eligibl e based on patient's age to complete this topic MENINGOCOCCAL GROUPS A/C/Y/W VACCINE Aged Out No longer eligible b ased on patient's age to complete this topic PNEUMOCOCCAL VACCINE Aged Out No long er eligible based on patient's age to complete this topic
--- OUTSIDE RECORDS SUMMARY | 2024-11-09 10:43 | XMS_ITS | Referral Summary ---
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 PLANT MANAGER Gender Identity Not on file Sexual Orientation Not on file Last Filed Vital Signs Vital Sign Reading Time Taken Comments Blood Pressure 136/70 10/20/2023 10:11 AM ASSISTANT PLANT MANAGER Pulse 73 10/20/2023 10:11 AM ASSISTANT PLANT MANAGER Temperature 36.6 C (97.9 F) 10/20/2023 10:11 AM ASSISTANT PLANT MANAGER Respiratory Rate 18 10/20/2023 10:11 AM ASSISTANT PLANT MANAGER Oxygen Saturation 95% 10/20/2023 10:11 AM ASSISTANT PLANT MANAGER Inhaled Oxygen Concentration - - Weight 124.7 kg (275 lb) 10/20/2023 10:11 AM ASSISTANT PLANT MANAGER Height 180.3 cm (5' 11 ) 10/20/2023 10:11 AM ASSISTANT PLANT MANAGER Body Mass Index 38.35 10/20/2023 10:11 AM ASSISTANT PLANT MANAGER Plan of Treatment Not on file Insurance [employer]IG[employer] OPEN ACCESS CIGNA OPEN ACCESS CIGNA OPEN ACCESS Care Teams Lighthouse Keeper Relationship Specialty Start Date End Date Margie Cardenas MD [facility] - General 03/05/21
[2024-11-09 13:00] LABS: Alanine Aminotransferase 44 U/L (6-50); Albumin Level 4.3 g/dL (3.5-5.1); Alkaline Phosphatase 87 U/L (38-126); Anion Gap 10 mmol/L (4-12); Aspartate Amino Transferase 56 U/L (17-59); Bilirubin,Total 0.4 mg/dL (0.2-1.3); Blood Urea Nitrogen 21 mg/dL (9-20); Calcium 9.5 mg/dL (8.4-10.2); Carbon Dioxide 24 mmol/L (22-30); Chloride 107 mmol/L (98-107); Cholesterol 183 mg/dL (0-200); Estimated Glomerular Filt Rate > 60; Glucose 105 mg/dL (65-110); HDL Direct 34 mg/dL; Potassium 4.5 mmol/L (3.4-5.0); Sodium 141 mmol/L (137-145); Triglycerides 112 mg/dL (<150); Uric Acid 5.9 mg/dL (3.5-8.5)
[2024-11-09 13:10] LABS: LDL Cholesterol Direct 106 mg/dL
[2024-11-09 13:55] LABS: Hemoglobin A1C 5.7 % (<5.7)
== END 2024-11-09 09:57 | disposition home or self-care (01) ==
LOC: ANHGOSHLAB 09:57
PROVIDERS: PCP Family Medicine; Visit Provider Family Medicine
DX: M10.9 Gout, unspecified (principal); K76.0 Fatty (change of) liver, not elsewhere classified; R73.03 Prediabetes; E78.5 Hyperlipidemia, unspecified
CPT/HCPCS: 36415; 80053; 80061; 83036; 84550

== ENCOUNTER 2025-05-10 08:59 | Outpatient (CLI) | payer OTHER, SELFPAY ==
--- OUTSIDE RECORDS SUMMARY | 2025-05-10 09:08 | XMS_ITS | Encounter Summary ---
Author Organization [facility] Address [address] [place] [place] [address] Care Team Providers Care Vp Marketing Services And Skin Name Role Phone Unavailable Primary Care Provider Unavailabl e Encounter Details Date Type Department Care Team (Late st Contact Info) Description 05/03/2018 Lab Requisition [facility] Care DermPath Lab [address] [facility] [place] [address] Faye Edwards MD [address] [facility] [address] [place] [address] Social History Tobacco Use Types Packs/Day Years Used Date Smoking Tobacco: Never Assessed Sex and Gender Information Value Date Recorded Sex Assigned at Not on file Legal Sex Male 2:08 PM CDT Gender Identity Not on file Sexual Orientation Not on file documented as of this encounter Plan of Treatment Not on file documented as of this encounter Procedures Procedure Name Priority Date/Time Associated Diagnosis Comments DERMATOPATH TECHNICAL REPORT Routine 05/02/2018 12:00 AM CDT documented in this encounter Results * DERMATOPATH TECHNICAL REPORT (05/02/2018 12:00 AM CDT) Case Report Dermatopathology Report Case: [id number] Authorizing Provider: Faye Edwards MD Collected: 05/02/2018 [...] The specimen consists of a punch measuring [id number]. Jar 0. Specimen B: Received is one formalin filled container labeled with the patient's name and designated left lower leg. The specimen consists of a punch measuring [id number]. Jar 0. [facility] Dermatopathology Laboratory performed the technical component only. [...] characteristic determined by the Dermatopathology Laboratory at [facility]. These tests need not be, and therefore are not, approved by the [place] Food and Drug Administration. The tests are used for clinical purposes. 12:45 PM T DERMATOPATHOLOGY LABORATORY at 1245 CDT Pathology/Cytology TISSUE SPECIMEN FROM SKIN / Unknown 05/02/2018 05/03/2018 5:50 AM CDT Miscellaneous samples (specimen) TISSUE SPECIMEN FROM SKIN / Unknown 05/02/2018 05/03/2018 5:50 AM CDT Faye Edwards MD LAB - PATHOLOGY/CYTOLOGY OR DERABLES Final Result DERMATOPATHOLOGY LABORATORY [facility] - Department of Dermatology [address] [place] [address] 5th [place] [address], [facility] [phone] documented in this encounter Visit Diagnoses Not on filedocumented in this encounter
--- OUTSIDE RECORDS SUMMARY | 2025-05-10 09:08 | XMS_ITS | Clinical Summary ---
Author Organization [facility] Address [address] [place] [address] Care Team Providers Care Logistics Project Manager Name Role Phone Unavailable Primary Care Provider Unavailabl e Source Comments [facility],non-owned Affiliates and Associated Physician Practices is amultiple site organization consisting of ambulatory clinics and hospital sitesin [place], [place], [place] and [place]. This disclosure is being madepursuant to the Care Everywhere program and may not contain all information available regarding this patient. Last updated 18.[facility] Social History Tobacco Use Types Packs/Day Years [...] 2020 ZOSTER VACCINE (1 of 2) 2020 DEPRESSION SCREENING 08/15/2024 COVID-19 VACCINE (1 - 2023-2 5 season) 2025 INFLUENZA VACCINE (#1) 2025 HIB VACCINE Aged Out No longer eligi [...] patient's age to complete this topic Insurance [employer] SELF PAY NO INSURANCE Member Subscriber Plan / Payer (Ef fective for All Dates) Name:Francisco Diaz Member ID:Not on file Relation to Subscriber:Not on file Name:FRANCISCO DIAZ Subscriber ID:Not on file Address: [address] [place] [address] [place] [address] Payer ID:Not on file Group ID:Not on file Type:Self Pay Address: [place] [facility] Address: [facility] [id number] [place] [id number] SELF PAY NO INSURANCE Member Subscriber Plan / Payer (Ef fective for All Dates) Name:Francisco Diaz Member ID:Not on file Relation to Subscriber:Not on file Name:FRANCISCO DIAZ Subscriber ID:Not on file Address: [address] [place] [address] [id number] Payer ID:Not on file Group ID:Not on file Type:Self Pay Address: [place], [place] SELF PAY NO INSURANCE Member Subscriber Plan / Payer (Ef fective for All Dates) Name:Francisco Diaz Member ID:Not on file Relation to Subscriber:Not on file Name:FRANCISCO DIAZ Subscriber ID:Not on file Address: [address] [place] [address] [address] [place] [phone] Payer ID:Not on file Group ID:Not on file Type:Self Pay Address: [place], [place]
--- OUTSIDE RECORDS SUMMARY | 2025-05-10 09:08 | XMS_ITS | Clinical Summary ---
Author Organization [facility] Address [address] [place] [address] Care Team Providers Care Plastic Molding Operator Name Role Phone Margie Cardenas MD Primary Care Provider Allergies No known active allergies Medications No known medications Active Problems No known active problems Social History Tobacco Use Types Packs/Day Years Used Date Smoking Tobacco: Never Tobacco Cessation:Counseling Given: Not Answered Sex and Gender Information Value Date Recorded Sex Assigned at Not on file Legal Sex Male 2:26 PM AUDITING CONTROL CLERK Gender Identity Not on file Sexual Orientation Not on file Obstetrics History Last Filed Vital Signs Vital Sign Reading Time Taken Comments Blood Pressure 136/70 10/20/2023 10:11 AM AUDITING CONTROL CLERK Pulse 73 10/20/2023 10:11 AM AUDITING CONTROL CLERK Temperature 36.6 C (97.9 F) 10/20/2023 10:11 AM AUDITING CONTROL CLERK Respiratory Rate 18 10/20/2023 10:11 AM AUDITING CONTROL CLERK Oxygen Saturation 95% 10/20/2023 10:11 AM AUDITING CONTROL CLERK Inhaled Oxygen Concentration - - Weight 124.7 kg (275 lb) 10/20/2023 10:11 AM AUDITING CONTROL CLERK Height 180.3 cm (5' 11) 10/20/2023 10:11 AM AUDITING CONTROL CLERK Body Mass Index 38.35 10/20/2023 10:11 AM AUDITING CONTROL CLERK Plan of Treatment Health Maintenance Due Date Last Done Comments Colon Cancer Screening-Colonoscopy 1970 Depression Screening 1970 Hepatitis C Screening 1970 Prostate Cancer Screening-PSA 1970 DTaP/Tdap/Td Vaccine (1 - Tdap) 1981 Hepatitis B Screening 1988 Regular Well Visit/Exam 18-64 1988 Zoster Vaccine (1 of 2) 2020 Influenza Vaccine (#1) 2025 Pneumococcal vaccine <65 Aged Out No longer eligible based on patient's age to complete this topic Insurance [employer] OPEN ACCESS [employer] OPEN ACCESS [employer] OPEN ACCESS Care Teams Plastic Molding Operator Relationship Specialty Start Date End Date Margie Cardenas MD PCP - General 03/05/21
[2025-05-10 18:19] LABS: Hemoglobin A1C 5.8 % (<5.7)
[2025-05-10 18:26] LABS: Alanine Aminotransferase 40 U/L (6-50); Albumin Level 4.2 g/dL (3.5-5.1); Alkaline Phosphatase 85 U/L (38-126); Anion Gap 6 mmol/L (4-12); Aspartate Amino Transferase 32 U/L (17-59); Bilirubin,Total 0.4 mg/dL (0.2-1.3); Blood Urea Nitrogen 21 mg/dL (9-20); Calcium 8.8 mg/dL (8.4-10.2); Carbon Dioxide 26 mmol/L (22-30); Chloride 106 mmol/L (98-107); Cholesterol 207 mg/dL (0-200); Estimated Glomerular Filt Rate > 60; Glucose 101 mg/dL (65-110); HDL Direct 33 mg/dL; Potassium 4.4 mmol/L (3.4-5.0); Sodium 138 mmol/L (137-145); Total Protein 7.3 g/dL (6.3-8.2); Triglycerides 131 mg/dL (<150); Uric Acid 8.0 mg/dL (3.5-8.5)
[2025-05-10 19:02] LABS: Prostate Specific Antigen 1.6 ng/mL (< OR = 4.0)
== END 2025-05-10 09:00 | disposition home or self-care (01) ==
PROVIDERS: PCP Family Medicine; Visit Provider Family Medicine
DX: R73.03 Prediabetes (principal); K76.0 Fatty (change of) liver, not elsewhere classified; M10.9 Gout, unspecified
CPT/HCPCS: 36415; 80053; 80061; 83036; 84153; 84550; G0103